=== PATIENT | male | born 1955 | race Asian ===

== ENCOUNTER 2022-04-04 16:08 | Emergency (ER) | payer MEDICARE, OTHER ==
[~2022-04-04] VITALS: Ht 165.1 cm; Wt 72.7 kg
[2022-04-04] MEDS ORDERED: ASPI81TA87 PO (16:44)
[2022-04-04] MEDS ORDERED: ALLO-97 PO (16:46)
[2022-04-04] MEDS ORDERED: METO-558 PO (16:46)
[2022-04-04] MEDS ORDERED: SIMV-260 PO (16:46)
[2022-04-04 18:26] VITALS: BP 128/80
== END 2022-04-04 18:28 | disposition home or self-care (01) ==
LOC: EMS 16:18
DX: H43.392 Other vitreous opacities, left eye (principal); E78.00 Pure hypercholesterolemia, unspecified; I10 Essential (primary) hypertension; M10.9 Gout, unspecified
CPT/HCPCS: 99282; Z7502